=== PATIENT | male | born 1975 | race Caucasian/White ===

== ENCOUNTER 2019-09-18 11:20 | Inpatient (IN) | payer BC ==
[2019-09-18] MEDS ORDERED: ACETAMINOPHEN INJECTION 100 ML IVPB ONE (11:44)
[2019-09-18] MEDS ORDERED: ACETAMINOPHEN 1000 MG/100 ML VIAL (NON FORMULARY) IVPB ONE (11:50)
[2019-09-18] MEDS ORDERED: SODIUM CHLORIDE 1,000 ML IV ONE (11:55)
[2019-09-18] MEDS ORDERED: ONDANSETRON 4 MG/2 ML VIAL IVPUSH ONE (12:00)
[2019-09-18] MEDS ORDERED: ALBUTEROL SO4 2.5/IPRATROPIUM 0.5 INH SOL 3 ML VIAL.NEB. NEB ONE ×3 (12:00→16:28)
[2019-09-18] MEDS ORDERED: ONDANSETRON 4 MG/2 ML VIAL ONE (12:08)
[2019-09-18 12:26] LABS: EOS % 0.4 % (0-4.5); HEMATOCRIT 38.7 % (35.4-49); HEMOGLOBIN 13.2 GM/dL (11.7-16.9); LYMPH % 2.7 % (8-40); MCH 29.4 pg (25.7-33.7); MEAN CELL VOLUME 86.5 fl (80-96); MEAN PLT VOLUME 8.8 fl (7.5-11.1); MONO % 1.8 % (3.8-10.2); NEUT % 94.1 % (42.8-82.8); PLATELET COUNT 151 K/MM3 (134-434); RBC 4.47 M/mm3 (4.00-5.60); RDW 13.6 % (11.9-15.9); WHITE BLOOD COUNT 13.2 K/mm3 (4.0-10.0)
[2019-09-18 12:36] LABS: ALBUMIN 3.1 g/dl (3.4-5.0); CALCIUM 8.1 mg/dL (8.5-10.1); CREATININE 0.9 mg/dL (0.55-1.3); POTASSIUM 3.5 mmol/L (3.5-5.1); TOT PROT 6.6 g/dl (6.4-8.2)
[2019-09-18 12:39] LABS: VENOUS PH 7.5 (7.31-7.41); VENOUS PO2 51.7 mmHg (28-48)
[2019-09-18 12:47] LABS: INR 1.34 (0.83-1.09); PROTHROMBIN TIME (PATIENT) 15.9 SEC (9.7-13.0)
[2019-09-18 12:49] LABS: ACTIVATED PTT 35.1 SECONDS (25.2-36.5)
[2019-09-18] MEDS ORDERED: CEFTRIAXONE 1,000 MG in DEXTROSE 5%-WATER - 50 ML IVPB ONE (12:56)
[2019-09-18] MEDS ORDERED: AZITHROMYCIN IVPB 500 MG in DEXTROSE 5%-WATER - 250 ML IVPB ONE (12:56)
[2019-09-18] MEDS ORDERED: cefTRIAXone SODIUM 1 GM VIAL ONE (13:07)
[2019-09-18] MEDS ORDERED: AZITHROMYCIN IVPB 500 MG/250 ML BAG IVPB ONE (13:07)
[2019-09-18] MEDS ORDERED: SODIUM CHLORIDE 0.9% 1000 ML INFUS.BAG IV ONE (13:29)
[2019-09-18 13:32] LABS: ANISOCYTOSIS 1+; MACROCYTOSIS 0; PLATELET ESTIMATE DECREASED; TEAR DROP CELLS 1+
[2019-09-18 13:41] LABS: EPI CELLS 0.5 /HPF (0-5/HPF); HYALINE CASTS 0 /lpf (0-8); URINE APPEARANCE CLEAR; URINE BACTERIA 0.3 /hpf (NEGATIVE); URINE BILIRUBIN NEGATIVE (NEGATIVE); URINE COLOR YELLOW; URINE GLUCOSE (UA) NEGATIVE (NEGATIVE); URINE KETONE TRACE (NEGATIVE); URINE LEUK ESTERASE NEGATIVE (NEGATIVE); URINE NITRITE NEGATIVE (NEGATIVE); URINE PROTEIN 1+ (NEGATIVE); URINE RBC 1 /hpf (0-4); URINE UROBILINOGEN 0.2 mg/dL (0.2-1.0); URINE WBC 1 /hpf (0-5)
--- NOTE | 2019-09-18 14:05 | PDOC ---
History of Present Illness - General Chief Complaint: Respiratory Stated Complaint: FLU LIKE SYMPTOMS Time Seen by Provider: 09/18/19 11:29 History Source: Patient Exam Limitations: No Limitations - History of Present Illness Initial Comments: 09/18/19 14:00 43-year-old male no past medical history here today complaining of a cough for several days. Patient states that he has been coughing so hard that he has been vomiting he has been having fevers and chills complained of generalized body aches and low back pain. Patient states he did have recent travel to [facility] at the beginning of this month returned 1 week ago denies any sick contacts no witnessed rash denies any chest pain no history of previous lung disease cough is productive of phlegm which is been yellow in color streak with some brown-reddish tint. Otherwise no current complaints Past History - Past Medical History Allergies/Adverse Reactions: Allergies Allergy/AdvReac Type Severity Reaction Status Date / Time No Known Allergies Allergy Verified 09/18/19 11:27 COPD: No GI Disorders: Yes (reflux) Other medical history: HS 1 - Psycho Social/Smoking Cessation Hx Smoking History: Never smoked Review of Systems - Review of Systems Constitutional: Yes: Chills, Fever HEENTM: No: Throat Pain Respiratory: Yes: Cough, Shortness of Breath, Productive cough Cardiac (ROS): No: Chest Pain, Edema : No: Burning, Dysuria Musculoskeletal: Yes: Other. No: Back Pain Integumentary: No: Bruising, Change in Color Neurological: No: Headache All Other Systems: Reviewed and Negative *Physical Exam - Vital Signs Last Vital Signs Temp Pulse Resp BP Pulse Ox 100.3 F H 98 H 20 122/74 96 09/18/19 13:20 09/18/19 13:20 09/18/19 13:20 09/18/19 13:20 09/18/19 13:20 - Physical Exam Comments: 09/18/19 14:02 awake alert lungs with crackles at base left side. no wheeze. heart reg tachycardia. abd soft nt nd ext wwp no edema. skin warm and dry no rash. nuero alert oriented x 3. ED Treatment Course - LABORATORY CBC & Chemistry Diagram: 09/18/19 11:55 09/18/19 11:55 - ADDITIONAL ORDERS Additional order review: Laboratory Results 09/18/19 09/18/1919 13:15 11:55 11:55 PT with INR 15.90 H INR 1.34 H PTT (Actin FS) 35.1 VBG pH 7.50 H POC VBG pCO2 33.0 L POC VBG pO2 51.7 H VBG HCO3 25.4 VBG O2 Sat (Ayaka) 89.4 H VBG Base Excess 2.8 H Sodium Potassium Chloride Carbon Dioxide Anion Gap BUN Creatinine Est GFR (CKD-EPI)AfAm Est GFR (CKD-EPI)NonAf Random Glucose Lactic Acid Calcium Total Bilirubin AST ALT Alkaline Phosphatase Troponin I Total Protein Albumin Urine Color Yellow Urine Appearance Clear Urine pH 6.0 Ur Specific [place] 1.012 Urine Protein 1+ H Urine Glucose (UA) Negative Urine Ketones Trace H Urine Blood Trace Urine Nitrite Negative Urine Bilirubin Negative Urine Urobilinogen 0.2 Ur Leukocyte Esterase Negative Urine WBC (Auto) 1 Urine RBC (Auto) 1 Urine Casts (Auto) 0 U Epithel Cells (Auto) 0.5 Urine Bacteria (Auto) 0.3 09/18/19 09/18/19 09/18/19 11:55 11:55 11:55 PT with INR INR PTT (Actin FS) VBG pH POC VBG pCO2 POC VBG pO2 VBG HCO3 VBG O2 Sat (Ayaka) VBG Base Excess Sodium 130 L Potassium 3.5 Chloride 97 L Carbon Dioxide 26 Anion Gap 7 L BUN 11.0 Creatinine 0.9 Est GFR (CKD-EPI)AfAm 122.52 Est GFR (CKD-EPI)NonAf 105.71 Random Glucose 141 H Lactic Acid 1.1 Calcium 8.1 L Total Bilirubin 1.0 AST 11 L ALT 21 Alkaline Phosphatase 72 Troponin I < 0.02 Total Protein 6.6 Albumin 3.1 L Urine Color Urine Appearance Urine pH Ur Specific [place] Urine Protein Urine Glucose (UA) Urine Ketones Urine Blood Urine Nitrite Urine Bilirubin Urine Urobilinogen Ur Leukocyte Esterase Urine WBC (Auto) Urine RBC (Auto) Urine Casts (Auto) U Epithel Cells (Auto) Urine Bacteria (Auto) 09/18/19 11:55 RBC 4.47 MCV 86.5 MCHC 34.0 RDW 13.6 MPV 8.8 Neutrophils % 94.1 H Lymphocytes % 2.7 L Monocytes % 1.8 L Eosinophils % 0.4 Basophils % 1.0 - Medications Given in the ED: ED Medications Discontinued Medications Generic Name Dose Route Start Last Admin Trade Name Horacio PRN Reason Stop Dose Admin Acetaminophen 1,000 mg 09/18/19 11:50 09/18/19 12:00 Ofirmev Injection - IVPB 09/18/19 11:51 1,000 mg NOW ONE Administration Albuterol/Ipratropium 1 amp 09/18/19 12:00 09/18/19 12:11 Duoneb - NEB 09/18/19 12:01 1 amp ONCE ONE Administration Sodium Chloride 1,000 mls @ 1,000 mls/hr 09/18/19 11:55 09/18/19 12:00 Normal Saline - IV 09/18/19 12:54 1,000 mls/hr ASDIR ONE Administration Ceftriaxone Sodium 1,000 mg/ 50 mls @ 100 mls/hr 09/18/19 12:56 09/18/19 13: 20 Dextrose IVPB 09/18/19 13:25 100 mls/hr ONCE ONE Administration Azithromycin 500 mg/ Dextrose 250 mls @ 250 mls/hr 09/18/19 12:56 09/18/19 13 :54 IVPB 09/18/19 13:55 250 mls/hr ONCE ONE Administration Ondansetron HCl 4 mg 09/18/19 12:00 09/18/19 12:11 Zofran Injection IVPUSH 09/18/19 12:01 4 mg ONCE ONE Administration Sodium Chloride 1,000 ml 09/18/19 13:29 09/18/19 13:00 Normal Saline - IV 09/18/19 13:30 1,000 ml ONCE ONE Administration Medical Decision Making - Medical Decision Making 09/18/19 14:03 43-year-old male no past medical history today with cough fever myalgias. Crackles on lung exam. Differential includes pneumonia influenza other viral syndrome elect light abnormalities sepsis. Plan Tylenol IV fluids patient was given a DuoNeb here Zofran for his nausea chest x-ray confirms a left lower lobe infiltrate. Patient was reassessed still has mild tachypnea at this point due to his white count and vital signs abnormalities will admit the patient for community acquired pneumonia 09/18/19 14:07 Discharge - Discharge Information Problems reviewed: Yes Clinical Impression/Diagnosis: Pneumonia - Admission Yes - Follow up/Referral - Patient Discharge Instructions - Post Discharge Activity
--- NOTE | 2019-09-18 15:10 | EKG ---
Test Reason : Blood Pressure : / mmHG Vent. Rate : 100 BPM Atrial Rate : 100 BPM P-R Int : 130 ms QRS Dur : 084 ms QT Int : 332 ms P-R-T Axes : 039 -12 -15 degrees QTc Int : 428 ms NORMAL SINUS RHYTHM POSSIBLE LEFT ATRIAL ENLARGEMENT LEFT VENTRICULAR HYPERTROPHY NONSPECIFIC ST AND T WAVE ABNORMALITY ABNORMAL ECG NO PREVIOUS ECGS AVAILABLE Confirmed by BHASKAR HORAN MD ([id number]) on 09/18/2019 3:10:19 PM Referred By: Confirmed By:BHASKAR HORAN MD
--- NOTE | 2019-09-18 15:12 | HP ---
Admitting History and Physical - Admission History of Present Illness: 43-year-old male no PMH who presented to ED with c/o a cough for several days. Patient states coughing is forceful that it causes him to vomit with subjective fevers and chills generalized body aches. Patient states he did have recent travel to [facility] at the beginning of this month returned 1 week ago denies any sick contacts States the yellow in color streak with some brown- reddish tint. Otherwise no current complaints History Source: Patient Limitations to Obtaining History: No Limitations - Past Medical History Gastrointestinal: Yes: GERD - Smoking History Smoking history: Never smoked - Alcohol/Substance Use Hx Alcohol Use: No History of Substance Use: reports: None - Social History Usual Living Arrangement: Yes: With Spouse ADL: Independent History of Recent Travel: Yes ([facility] 1 month ago) Home Medications - Allergies Allergies/Adverse Reactions: Allergies Allergy/AdvReac Type Severity Reaction Status Date / Time No Known Allergies Allergy Verified 09/18/19 11:27 Family Medical History Family History: Denies Review of Systems - Review of Systems Constitutional: reports: Chills, Fever Eyes: reports: No Symptoms HENT: reports: No Symptoms Neck: reports: No Symptoms Cardiovascular: reports: Shortness of Breath Respiratory: reports: Cough, SOB Gastrointestinal: reports: Nausea, Vomiting Genitourinary: reports: No Symptoms Breasts: reports: No Symptoms Reported Musculoskeletal: reports: Back Pain, Muscle Pain Integumentary: reports: No Symptoms Neurological: reports: No Symptoms Endocrine: reports: No Symptoms Hematology/Lymphatic: reports: No Symptoms Psychiatric: reports: No Symptoms Physical Examination Vital Signs: Vital Signs Temperature 100.3 F H 09/18/19 13:20 Pulse Rate 98 H 09/18/19 13:20 Respiratory Rate 20 09/18/19 13:20 Blood Pressure 122/74 09/18/19 13:20 O2 Sat by Pulse Oximetry (%) 96 09/18/19 13:20 Constitutional: Yes: Well Nourished, No Distress, Calm Eyes: Yes: WNL, Conjunctiva Clear, EOM Intact HENT: Yes: WNL, Atraumatic, Normocephalic Neck: Yes: WNL, Supple, Trachea Midline Cardiovascular: Yes: Regular Rate and Rhythm, Tachycardia Respiratory: Yes: Regular, Diminished (on left), Rhonchi Gastrointestinal: Yes: WNL, Normal Bowel Sounds ...Rectal Exam: Yes: Deferred Renal/: Yes: WNL Breast(s): Yes: WNL Musculoskeletal: Yes: Back Pain, Muscle Pain Extremities: Yes: WNL Edema: No Peripheral Pulses WNL: Yes Peripheral Pulses: Left Radial: 2+, Right Radial: 2+, Left Doralis Pedis: 2+, Right Dorsalis Pedis: 2+, Left Femoral: 2+, Right Femoral: 2+ Integumentary: Yes: WNL Neurological: Yes: WNL, Alert, Oriented ...Motor Strength: WNL Psychiatric: Yes: WNL Labs: CBC, BMP 09/18/19 11:55 09/18/19 11:55 Imaging - Results Chest X-ray: Image Reviewed (LLL infiltarte) Problem List - Problems (1) Vomiting Assessment/Plan: antiemetics prn Code(s): R11.10 - VOMITING, UNSPECIFIED (2) Prophylactic measure Code(s): Z29.9 - ENCOUNTER FOR PROPHYLACTIC MEASURES, UNSPECIFIED (3) Pneumonia Assessment/Plan: PNA on CXR azithromycin/ceftriaxone x 1 in Ed will continue IH bronchodilators supplemental O2 to maintain SPO2 >92% Code(s): J18.9 - PNEUMONIA, UNSPECIFIED ORGANISM (4) Fever Assessment/Plan: T 103 on arrival to ED tucker cultured, will follow tylenol prn legionella/ flu sent Code(s): R50.9 - FEVER, UNSPECIFIED Visit type - Emergency Visit Emergency Visit: Yes ED Registration Date: 09/18/19 Care time: The patient presented to the Emergency Department on the above date and was hospitalized for further evaluation of their emergent condition. - New Patient This patient is new to me today: Yes Date on this admission: 09/18/19 - Critical Care Critical Care patient: No
[2019-09-18] MEDS: SODIUM CHLORIDE 1,000 ML IV SCH (16:27)
[2019-09-18] MEDS: ALBUTEROL SO4 2.5/IPRATROPIUM 0.5 INH SOL 3 ML VIAL.NEB. NEB SCH ×2 (16:27→20:05)
[2019-09-18] MEDS ORDERED: IBUPROFEN 400 MG TABLET (FP) PO ONE (17:02)
[2019-09-18 19:00] VITALS: BMI 32.2
[2019-09-18] MEDS ORDERED: ACETAMINOPHEN 325 MG TABLET (FP) PO PRN (21:01)
--- NOTE | 2019-09-19 08:21 | PN ---
Progress Note, Physician - Current Medication List Current Medications: Active Medications Acetaminophen (Tylenol -) 650 mg PO Q4H PRN PRN Reason: FEVER Last Admin: 09/18/19 21:05 Dose: 650 mg Albuterol/Ipratropium (Duoneb -) 1 amp NEB RQID [facility] Last Admin: 09/18/19 20:05 Dose: 1 amp Azithromycin (Zithromax 500mg Ivpb (Pre-Docked)) 500 mg in 250 mls @ 250 mls/ hr IVPB ONCE ONE Stop: 09/19/19 16:14 Ceftriaxone Sodium 1 gm/ (Dextrose) 50 mls @ 200 mls/hr IVPB DAILY ROXANN; Protocol Sodium Chloride (Normal Saline -) 1,000 mls @ 100 mls/hr IV ASDIR ROXANN Last Admin: 09/18/19 16:27 Dose: 100 mls/hr - Objective Vital Signs: Vital Signs Temperature 99.2 F 09/19/19 06:00 Pulse Rate 82 09/19/19 06:00 Respiratory Rate 20 09/19/19 06:00 Blood Pressure 102/56 L 09/19/19 06:00 O2 Sat by Pulse Oximetry (%) 95 09/18/19 21:00 Labs: CBC, BMP 09/18/19 11:55 09/18/19 11:55 INR, PTT INR 1.34 (0.83-1.09) H 09/18/19 11:55 Problem List - Problems (1) Vomiting Code(s): R11.10 - VOMITING, UNSPECIFIED (2) Prophylactic measure Code(s): Z29.9 - ENCOUNTER FOR PROPHYLACTIC MEASURES, UNSPECIFIED (3) Pneumonia Code(s): J18.9 - PNEUMONIA, UNSPECIFIED ORGANISM (4) Fever Code(s): R50.9 - FEVER, UNSPECIFIED
[2019-09-19] MEDS: ALBUTEROL SO4 2.5/IPRATROPIUM 0.5 INH SOL 3 ML VIAL.NEB. NEB SCH ×3 (08:40→16:00)
[2019-09-19] MEDS ORDERED: cefTRIAXone SODIUM 1 GM VIAL ONE (09:54)
[2019-09-19] MEDS ORDERED: DEXTROSE 5%-WATER - 50 ML IVPB ONE (09:54)
[2019-09-19] MEDS ORDERED: CEFTRIAXONE 1 GM in DEXTROSE 5%-WATER - 50 ML IVPB SCH (10:00)
[2019-09-19 12:31] LABS: BASO % 0.5 % (0-2.0); EOS % 1.6 % (0-4.5); HEMATOCRIT 35.7 % (35.4-49); HEMOGLOBIN 12.1 GM/dL (11.7-16.9); LYMPH % 12.9 % (8-40); MCH 29.7 pg (25.7-33.7); MCHC 33.9 g/dl (32.0-35.9); MEAN CELL VOLUME 87.7 fl (80-96); MEAN PLT VOLUME 9.2 fl (7.5-11.1); MONO % 5.9 % (3.8-10.2); NEUT % 79.1 % (42.8-82.8); PLATELET COUNT 158 K/MM3 (134-434); RBC 4.08 M/mm3 (4.00-5.60); RDW 14.1 % (11.9-15.9); WHITE BLOOD COUNT 10.9 K/mm3 (4.0-10.0)
[2019-09-19 12:55] LABS: ALBUMIN 2.7 g/dl (3.4-5.0); BILIRUBIN,TOTAL 0.4 mg/dL (0.2-1); BLOOD UREA NITROGEN 11.8 mg/dL (7-18); CALCIUM 7.8 mg/dL (8.5-10.1); CREATININE 0.8 mg/dL (0.55-1.3); MAGNESIUM 2.5 mg/dL (1.8-2.4); POTASSIUM 3.5 mmol/L (3.5-5.1); TOT PROT 6.2 g/dl (6.4-8.2)
[2019-09-19 14:06] LABS: PLATELET ESTIMATE DECREASED
[2019-09-19] MEDS ORDERED: POTASSIUM CHLORIDE TABS 20 MEQ TABLET.ER (FP) PO ONE (14:25)
[2019-09-19] MEDS ORDERED: ALBUTEROL SO4 8 GM HFA INHALER IH PRN (15:07)
[2019-09-19] MEDS ORDERED: AZITHROMYCIN IVPB 500 MG/250 ML BAG IVPB ONE (15:15)
--- NOTE | 2019-09-19 15:17 | DS ---
Physical Exam: SUBJECTIVE: Patient seen and examined OBJECTIVE: Vital Signs Period Temp Pulse Resp BP Sys/[place] Pulse Ox Last 24 Hr 98.2 F-101.3 F 82-102 20-24 102-118/56-71 95-97 PHYSICAL EXAM GENERAL: The patient is awake, alert, and fully oriented, in no acute distress. HEAD: Normal with no signs of trauma. EYES: PERRL, extraocular movements intact, sclera anicteric, conjunctiva clear. ENT: Ears normal, nares patent, oropharynx clear without exudates, moist mucous membranes. NECK: Trachea midline, full range of motion, supple. LUNGS: Breath sounds equal, clear to auscultation bilaterally, no wheezes, no crackles, no accessory muscle use. HEART: Regular rate and rhythm, S1, S2 without murmur, rub or gallop. ABDOMEN: Soft, nontender, nondistended, normoactive bowel sounds, no guarding, no rebound, no hepatosplenomegaly, no masses. EXTREMITIES: 2+ pulses, warm, well-perfused, no edema. NEUROLOGICAL: Cranial nerves II through XII grossly intact. Normal speech, gait not observed. PSYCH: Normal mood, normal affect. SKIN: Warm, dry, normal turgor, no rashes or lesions noted. LABS Laboratory Results - last 24 hr 09/19/19 09/19/19 12:00 12:00 WBC 10.9 H RBC 4.08 Hgb 12.1 Hct 35.7 MCV 87.7 MCH 29.7 MCHC 33.9 RDW 14.1 Plt Count 158 MPV 9.2 Absolute Neuts (auto) 8.6 H Neutrophils % 79.1 Neutrophils % (Manual) 74.2 Band Neutrophils % 0.0 Lymphocytes % 12.9 D Lymphocytes % (Manual) 3.0 L D Monocytes % 5.9 D Monocytes % (Manual) 5 D Eosinophils % 1.6 D Eosinophils % (Manual) 2.0 D Basophils % 0.5 Basophils % (Manual) 0.0 Myelocytes % (Man) 2 D Promyelocytes % (Man) 0 Blast Cells % (Manual) 0 Nucleated RBC % 0 Metamyelocytes 0 D Platelet Estimate Decreased Sodium 138 Potassium 3.5 Chloride 103 Carbon Dioxide 27 Anion Gap 8 BUN 11.8 Creatinine 0.8 Est GFR (CKD-EPI)AfAm 128.60 Est GFR (CKD-EPI)NonAf 110.96 Random Glucose 115 H Calcium 7.8 L Magnesium 2.5 H Total Bilirubin 0.4 AST 17 ALT 25 Alkaline Phosphatase 70 Total Protein 6.2 L Albumin 2.7 L HOSPITAL COURSE: Date of Admission:09/18/19 Date of Discharge: 09/19/19 Minutes to complete discharge: 45 Discharge Summary Problems reviewed: Yes Reason For Visit: PNEUMONIA Current Active Problems Fever (Acute) Pneumonia (Acute) Prophylactic measure (Acute) Vomiting (Acute) - Instructions Diet, Activity, Other Instructions: You were admitted and treated for a pneumonia with steroids, antibiotics and bronchodilators. You much improved with the treatment You will be sent home on the following medications: Augmentin 875 mg twice a day for 1 week doxycillin 100mg twice a day for 1 week albuterol inhaler every 4 hours if needed Finish the 2 antibiotics until them are done. You may still cough you phlegm over the next week If you have trouble breathing take the inhaler 2 puffs. If is do not resolve call your primary provider or go to Urgent care or return back to the ED - Home Medications Comprehensive Discharge Medication List: Ambulatory Orders Acetaminophen [Tylenol .Regular Strength -] 650 mg PO Q4H PRN tablet 09/19/19 Albuterol Sulfate Inhaler - [Ventolin HFA Inhaler -] 2 puff IH Q4H PRN #1 inhaler 09/19/19 Amox-Tr/K Cl [Augmentin 875-125mg Tablet -] 1 tab PO BID@0800,1730 #14 tablet Doxycycline Hyclate [Vibramycin -] 100 mg PO BID@1000,1800 #14 capsule 09/19/19 Problem List - Problems (1) Vomiting Code(s): R11.10 - VOMITING, UNSPECIFIED (2) Prophylactic measure Code(s): Z29.9 - ENCOUNTER FOR PROPHYLACTIC MEASURES, UNSPECIFIED (3) Pneumonia Code(s): J18.9 - PNEUMONIA, UNSPECIFIED ORGANISM (4) Fever Code(s): R50.9 - FEVER, UNSPECIFIED
[2019-09-19 15:44] VITALS: BP 118/74; PULSE 83; TEMP 97.9
[2019-09-19] MEDS ORDERED: AMOX TR/POT CLAV 875MG/125MG TABLETS (FP) PO SCH (17:30)
[2019-09-19] MEDS: SODIUM CHLORIDE 1,000 ML IV SCH (17:52)
[2019-09-19] MEDS ORDERED: DOXYCYCLINE HYCLATE 100 MG CAPSULE PO SCH (18:00)
== END 2019-09-19 17:45 | disposition home or self-care (01) | DRG 195 ==
LOC: JER 11:20 → JERBED 14:05 → J5S 19:01
PROVIDERS: ADMIT Internal Medicine; ATTEND Nurse Practitioner Acute Care
DX: J18.9 Pneumonia, unspecified organism (principal); R50.9 Fever, unspecified; K21.9 Gastro-esophageal reflux disease without esophagitis; R11.10 Vomiting, unspecified; R05 Cough
CPT/HCPCS: 36415; 71045-TC-FY; 80053; 81003; 82803; 83605; 83735; 84484; 85025; 85610; 85730; 87040; 87086; 87804; 93005; 93010; 94640; 99285-25; J0131; J7030